=== PATIENT | male | born 1975 | race Caucasian/White ===

== ENCOUNTER → 2017-09-12 | Day surgery (SDC) | payer OTHER ==
[~2017-09-12] VITALS: Ht 167.6 cm; Wt 68.0 kg
[~2017-09-12] MED LIST: *Lactated Ringer's INJ 1,000 ML ONE; BUPIVACAINE HCL PF 0.5% 30 ML VIAL ONE; CEPH-460 PO; CHLORHEXIDINE GLUCONATE 2 % 1 PACK (2 CLOTHS) TOPICAL PRN; FAMOTIDINE 20 MG/2 ML VIAL ONE; HYDR-3288 PO; IBUP1TAB7 PO; LACTATED RINGER'S 1000 ML IV PRN; LIDOCAINE HCL 2% 50 ML VIAL ONE; METOPROLOL TARTRATE 25 MG TAB PO PRN; MIDAZOLAM HCL 2 MG/2 ML VIAL ONE; NEOMYCIN/POLYMYXIN 1 ML G.U. IRRIGANT ONE; POVIDONE IODINE 5% (ANTISEPSIS KIT) 4 APPLICATIONS EACH NARE PRN; SODIUM CHLORID 0.9% 500 ML IV PRN; ceFAZolin 2 GM PREMIX 50 ML IV SCH
[2017-09-12 10:24] VITALS: PULSE 77
[2017-09-12 11:15] VITALS: PULSE 81; TEMP 98
[2017-09-12 11:50] VITALS: BP 143/106; PULSE 73; RESP 16; O2SAT 98
--- NOTE | 2017-09-13 05:59 | MP ---
cc: GEOFFREY MADRIGAL III, M.D. DATE OF OPERATION 09/12/2017 PREOPERATIVE DIAGNOSES 1. Right fifth metacarpal nonunion. 2. Right carpal tunnel syndrome. PROCEDURE 1. Right fifth metacarpal nonunion open reduction internal fixation. 2. Right open carpal tunnel release. 3. Use of imaging intensifier. SURGEON Geoffrey Madrigal MD TOURNIQUET TIME 68 minutes at 220 mmHg. PROCEDURE The patient was brought to the operating room and placed supine on the operating room table. After the correct site and side of the surgery were verified by members of each team in the room multiple times including the patient and myself and after adequate preoperative markings and preoperative written consent were verified by everyone and after adequate preoperative time-out was performed to everyone's satisfaction, after adequate general anesthesia had been achieved, the right upper extremity was prepped and draped in the traditional sterile surgical fashion. The C-arm was used to verify the site of the incision and procedure, dissection planned. The incisions were injected with a 50/50 mixture of 2% plain lidocaine and 0.5% plain Marcaine. Jose wrap was used to exsanguinate the limb. A highly placed, well-padded axillary tourniquet was inflated to 220 mmHg for a total of 68 minutes. A longitudinal incision at the base of palm was made and carried down through the skin, subcutaneous tissue within the skin crease. Blunt dissection was performed. The palmar fascia was retracted in opposite directions. The transverse carpal ligament was identified and divided at the midline from its proximal-most to its distal-most extents. The median nerve was found to be significantly kinked just distal to the palmar flexion crease. This was obviously relieved when the transverse carpal ligament was divided. There were no other anatomic abnormalities otherwise identified. There was no mass effect anywhere else. There was a moderately hypertrophic tenosynovium. Thorough irrigation with saline was performed and the skin edges were reapproximated using running 4-0 nylon suture. Attention was then paid to the fifth metacarpal. The hand was placed on a bump palm down and a longitudinal incision made overlying the fifth metacarpal dorsally. Blunt dissection was performed. Bipolar electrocautery was used as needed. The dense tendons were retracted in that direction. The EDQ and the EDC tendons had to be incised distally to expose the head of the metacarpal and these repaired on the way out. The periosteum was incised sharply and then stripped around the area of the easily identified nonunion. There was not a lot of scar tissue that had formed on the bony ends but these were freshened. Thorough irrigation was performed using a 1.5-mm stainless steel Synthes modular handset, three solid-biting screws were placed distally and then five proximally with a T-shaped plate and bone graft putty was used in the area of the defect. Provisional fixation was held with a 0.045-cm K-wire. Following this past passive motion examination revealed no evidence of any mal-angulation or malrotation and there was complete and full passive range of motion without any crepitance. Positioning and length of the screws was confirmed using Real-Time C-arm intraoperatively. Thorough irrigation was performed multiple times. The periosteum was closed over the hardware completely using 2-0 Vicryl sutures. The extensor michaud was repaired using running 4-0 Ethibond suture. Thorough irrigation was performed and the deep subcutaneous tissues were reapproximated using interrupted 3-0 Vicryl sutures and the skin edges reapproximated using running and interrupted 4-0 nylon sutures. Additional local anesthetic was injected for postoperative pain control. The hand and arm were thoroughly cleansed and dried with Betadine. Adaptic dressings were applied on top of the wounds, followed by a bulky, soft and then loosely placed circumferential dressing. The axillary tourniquet was released. The hand and all fingers including the fifth finger became immediately soft, pink and warm and had brisk capillary refill of less than 2 seconds. A bulky volar and ulnar 4 x 15 fiberglass splint was made going out to the PIP joint, short-arm length. The patient has awakened from anesthesia and transported to the Post-Anesthesia Care Unit awake and in stable condition at the end of the case. Sponge, needle and instrument counts were correct at the end of the case as reported by the nurses in the room. MD DAMARI Villarreal III/CONCEPCIÓN /11:01 AM /5:25 AM
== END | disposition home or self-care (01) ==
LOC: PHSDC 06:05
PROVIDERS: ATTEND Orthopaedic Surgery Hand Surgery
DX: S62.30 Unspecified fracture of other metacarpal bone (principal); G56.01 Carpal tunnel syndrome, right upper limb; I10 Essential (primary) hypertension
CPT/HCPCS: 01810; 26546; 64721; 76000; C1713; J0690; J2250; J7120